=== PATIENT | male | born 1975 | race Caucasian/White ===

== ENCOUNTER 2017-07-22 10:56 | Emergency (ER) | payer MEDICAID ==
[2015-11-19 14:48] VITALS: Wt 90.7 kg
[~2017-07-22 10:56] MED LIST: AMOX875T60 PO; CLAR-1 PO; LOR5/325 PO; PANT40TA65 PO; SUCR1TAB85 PO
[2017-07-22 11:00] VITALS: BP 158/112
--- NOTE | 2017-07-22 11:27 | ER Report ---
History and Physical Time Seen By MD: 11:00 Hx. of Stated Complaint: lump under old (2years) incision HPI/ROS CHIEF COMPLAINT: Lump in abdomen HISTORY OF PRESENT ILLNESS: Patient is a 41-year-old male who presents to ED with complaint of a lump in his abdomen that is noticed for the past week. He states that it is along his surgical incision that he got 2 years ago after a laparotomy from a gastric perforation. Patient states that he is having no pain with this. He has not noted any redness. He denies any fever. He states that it has been intermittent and seems to notice it more the coughs or bears down. He denies any nausea or vomiting. He states that he is feeling well overall just wanted a with a lump was. REVIEW OF SYSTEMS: Constitutional: No fever, no chills. Cardiovascular: No chest pain, no palpitations. Respiratory: No cough, no shortness of breath. Gastrointestinal: No abdominal pain, no vomiting. Musculoskeletal: No back pain. Skin: See history of present illness. Neurological: No headache. Allergies: Coded Allergies: No Known Drug Allergies (Unverified , 07/22/17) Home Meds Discontinued Scripts Amoxicillin (AMOXICILLIN) 875 Mg Tablet, 1 TAB PO Q12H, #28 TAB Prov:YVETTE FARAH MD 11/23/15 Clarithromycin (CLARITHROMYCIN) 500 Mg Tablet, 500 MG PO BID, #14 TAB Prov:YVETTE FARAH MD 11/23/15 Sucralfate (CARAFATE) 1 Gm Tablet, 1 GM PO QID, #28 TAB Prov:YVETTE FARAH MD 11/23/15 Pantoprazole Sodium (PANTOPRAZOLE SODIUM) 40 Mg Tablet.dr, 40 MG PO BID, #90 TAB.SR Prov:YVETTE FARAH MD 11/23/15 Hydrocodone Bit/Acetaminophen (HYDROCODON-ACETAMINOPHEN 5-325) 1 Each Tablet, 1 EACH PO Q4-6H, #30 TAB Prov:YVETTE FARAH MD 11/23/15 Reviewed Nurses Notes: Yes Old Medical Records Reviewed: Yes Hx Smoking: No Smoking Status: Never Smoker Hx Substance Use Disorder: No Hx Alcohol Use: Yes (PINT A WEEK) Constitutional Vital Sign - Last 24 Hours 07/22/17 11:00 Temp 98.0 Pulse 100 Resp 16 B/P (MAP) 158/112 Pulse Ox 92 O2 Delivery Room Air Physical Exam General Appearance: The patient is alert, has no immediate need for airway protection and no signs of toxicity. Pt appears to be in no acute distress. Respiratory: There are no retractions, lungs are clear to auscultation. Cardiovascular: Regular rate and rhythm. Gastrointestinal: Abdomen is soft and non tender, no masses, bowel sounds normal in all 4 quadrants. There is a surgical incision that is vertical on the mid abdomen line. There is a very small area of swelling/lump along the surgical line. This doesn't appear to be slightly more pronounced with valsalva. No surrounding erythema or pain. Skin: Warm and dry, no rashes. Musculoskeletal: Neck is supple non tender. Extremities are nontender, nonswollen and have full range of motion. DIFFERENTIAL DIAGNOSIS: After history and physical exam differential diagnosis was considered for lump of abdomen looting incisional hernia, hematoma, seroma, abscess. Medical Decision Making ED Course/Re-evaluation ED Course Bedside ultrasound of the area did not reveal any significant defect. Discussed with patient that this likely is a very small incisional hernia. Advised him to monitor for any redness, increasing swelling, pain. He may follow-up with surgery or primary care provider regarding this. Decision to Disposition Date: Jul 22, 2017 Decision to Disposition Time: 11:25 Depart Departure Latest Vital Signs Vital Signs Date Time Temp Pulse Resp B/P (MAP) Pulse Ox O2 Delivery O2 Flow Rate FiO2 07/22/17 11:00 98.0 100 16 158/112 92 Room Air Impression: Primary Impression: INCISIONAL HERNIA WITHOUT OBSTRUCTION OR GANGRENE Condition: Improved Disposition: HOME OR SELF-CARE Referrals: YVETTE FARAH MD New Scripts No Active Prescriptions or Reported Meds Patient Instructions: Incisional Hernia (GEN) Additional Instructions: Monitor for any redness, swelling, pain. Follow-up with surgery or primary care provider in 2-3 days. If having any worsening or concerning symptoms may return to the emergency department. CERTIFIED NUCLEAR MEDICINE TECHNOLOGIST/PA consult with MD: Examined Patient MD Consult Note: MICHAELA Garza ZACHERY R PA-C Jul 22, 2017 11:27
== END 2017-07-22 11:34 | disposition home or self-care (01) ==
LOC: ER 11:18
DX: K43.2 Incisional hernia without obstruction or gangrene (principal)
CPT/HCPCS: 99283